=== PATIENT | female | born 1985 | race Caucasian/White ===

== ENCOUNTER 2022-02-24 15:59 | Outpatient (CLI) | payer OTHER, SELFPAY ==
[2022-02-25 17:57] LABS: Strep B DNA Probe POSITIVE (Negative)
== END 2022-02-24 16:00 | disposition home or self-care (01) ==
LOC: NFLDREF 15:59
PROVIDERS: Visit Provider Obstetrics & Gynecology
DX: Z34.93 Encounter for supervision of normal pregnancy, unspecified, third trimester (principal); Z3A.35 35 weeks gestation of pregnancy
CPT/HCPCS: 87081; 87653

== ENCOUNTER 2022-02-26 10:34 | Outpatient (CLI) | payer OTHER, SELFPAY ==
[2022-02-26 10:48] VITALS: BP 123/78; PULSE 101; RESP 18; TEMP 36.6; O2SAT 97
--- NOTE | 2022-02-26 13:00 | PC.OBNST ---
NST Note NST Note Start: 02/26/22 10:45 Freq: ONCE Status: Active Protocol: Document 02/26/22 12:10 BAM (Rec: 02/26/22 13:00 BAM [id number]) NST Note 2 Para (# of births) 0 EDC 03/30/22 Patient Presented with Complaint(s) of Other If Observation after an injury, describe Patient slipped on wet grass last night at 10:00pm. She landed on her knees Other Complaints Denies hitting stomach on ground or having pain Reactive Yes Appropriate for Gestational Age Yes WAYNE Kapoor RN Date 02/26/22 Reactive Yes Appropriate for Gestational Age Yes WAYNE Ferrer RN Date 02/26/22 OB NST charge Yes Provider Evaluation of EFM Strip: Reactive: [] Appropriate for Gestational Age: [] Comments:
== END 2022-02-26 12:20 | disposition home or self-care (01) ==
LOC: OB OUT 10:35 → OB 11:16
PROVIDERS: Absent Provider Obstetrics & Gynecology; Visit Provider Obstetrics & Gynecology
DX: O09.293 Supervision of pregnancy with other poor reproductive or obstetric history, third trimester (principal); O09.523 Supervision of elderly multigravida, third trimester
CPT/HCPCS: 59025

== ENCOUNTER 2022-03-07 10:58 | Outpatient (CLI) | payer OTHER, SELFPAY ==
[2022-03-07 11:06] VITALS: PULSE 90; O2SAT 97
[2022-03-07 11:08] VITALS: BP 133/88; PULSE 77; RESP 16; TEMP 36.8
== END 2022-03-07 14:32 | disposition home or self-care (01) ==
LOC: OB OUT 10:59 → OB 03-08 10:05
PROVIDERS: Visit Provider Obstetrics & Gynecology
DX: Z34.93 Encounter for supervision of normal pregnancy, unspecified, third trimester (principal); Z3A.36 36 weeks gestation of pregnancy
CPT/HCPCS: 59025; 99211; 99213

== ENCOUNTER 2022-03-08 16:30 | Inpatient (IN) | payer OTHER, SELFPAY ==
[2022-03-08 16:45] VITALS: BP 138/85
[2022-03-08 16:53] VITALS: BP 138/83; PULSE 75
[2022-03-08 16:54] VITALS: BP 138/85; PULSE 85; TEMP 36.4
[2022-03-08 17:22] VITALS: BMI 30.3
[2022-03-08 18:33] LABS: SARS PCR* Negative SARS-CoV-2 (Negative)
--- NOTE | 2022-03-08 18:35 | W.PM.LDBA ---
Subjective History of Present Illness Narrative: Patient is being admitted to Labor and Delivery for induction of labor. She is a 36 year old woman at 36 6/7 weeks gestation. She has hx of IUFD, and was having BPPs with MPP during the 3rd trimester. On a BPP from last week, intermittent variable decelerations were noted and nuchal cord X 5 was suspected. The perinatologist recommended she have IOL at 37 weeks. In addition, she has had one BP with systolic in the 140s in clinic. Her systolic BP at this time is 138, and she is currently in bed. blood type: A positive 2, P0010 : Sy Ultrasounds at [facility] are not covered by her insurance. EDC based on early US 1. H/o IUFD at 18 weeks 2. AMA: MaterniT 21: Negative; recommended level 2 u/s AFP at 15-16 weeks: Not done --Level 2 US: 11/03/2021, normal. Low lying placenta resolved. No evidence of anomalies, though heart and thorax not well seen. Follow-up ultrasound scheduled in 3 weeks. --U/S on 12/04/21:appropriate interval growth, estimated weight appropriate for gestational age, no anomalies noted. Recommendation is monthly growth and weekly BPPs beginning at 32 weeks until delivery by 39 weeks. --U/S on 01/01: No anomalies detected; growth and EFW consistent with dates; Nl CHRIS; Nl activity. F/u US scheduled at 32 weeks to reassess growth and to start weekly testing --US 01/29/22: EFW 1912 b or 4# 3oz (62%). Recommend weekly BPP, scheduled. Cont growth q4wks --US 02/23/22: BPP 8/8, MVP 7.2 cm --US 03/02/22 EFW 2597 g (28%), multiple nuchal cords (5) noted. BPP 10/, NST reactive but variable deceleration noted. Patient sent to [facility] for prolonged monitoring, then discharged. Recommended NST on 03/04 or 03/05, and induction of labor at 37 weeks. 3. Probable AURY measuring 3.2 x 2.2 x 1.8 cm 4. Migraine headaches. Fioricet or codeine sparingly as needed for severe migraine. Has previously used Imitrex. New prescription for Imitrex 50 mg sent in on 02/10/2022. Discussed prophylaxis with propranolol. Prescription sent in for 40 mg QD-->BID on 02/10/22. Patient did not start. 5. Elevated 1-h GTT (162) 3h GTT: normal (92, 135, 181, 91) 6. GBS positive, no known drug allergies. Needs IV penicillin in labor. Flu: can obtain through work Covid: vaccinated, not boosted; reluctant to do so, as she had an IUFD sometime after vaccine Her full history and physical was dictated by [] on []. Please see this for details. [] OB - H&P: Exam Physical Exam: Vital signs: Temp Pulse BP 97.5 F L 85 138/85 03/08/22 16:54 03/08/22 16:54 03/08/22 16:54
--- NOTE | 2022-03-08 18:42 | P.OBHP_ITS ---
OB - H&P: HPI Labor/Induction History of Present Illness Chief Complaint: Patient is being admitted to Labor and Delivery for induction of labor. She is a 36 year old woman at 36 6/7 weeks gestation. She has hx of IUFD, and was having BPPs with MPP during the 3rd trimester. On a BPP from last week, int ermittent variable decelerations were noted and nuchal cord X 5 was suspected. The perinatologist recommended she have IOL at 37 weeks. In addition, she has had one BP with systolic in the 140s in clinic. Her systolic BP at this time is 138, and she is currently in bed. blood type: A positive 2, P0010 : Sy Ultrasounds at [facility] are not covered by her insurance. EDC based on early US 1. H/o IUFD at 18 weeks 2. AMA: MaterniT 21: Negative; recommended level 2 u/s AFP at 15-16 weeks: Not done --Level 2 US: 11/03/2021, normal. Low lying placenta resolved. No evidence of anomalies, though heart and thorax not well seen. Follow-up ultrasound scheduled in 3 weeks. --U/S on 12/04/21:appropriate interval growth, estimated weight appropriate for gestational age, no anomalies noted. Recommendation is monthly growth and weekly BPPs beginning at 32 weeks until delivery by 39 weeks. --U/S on 01/01: No anomalies detected; growth and EFW consistent with dates; Nl CHRIS; Nl activity. F/u US scheduled at 32 weeks to reassess growth and to start weekly testing --US 01/29/22: EFW 1912 b or 4# 3oz (62%). Recommend weekly BPP, scheduled. Cont growth q4wks --US 02/23/22: BPP 8/8, MVP 7.2 cm --US 03/02/22 EFW 2597 g (28%), multiple nuchal cords (5) noted. BPP 10/10, NST reactive but variable deceleration noted. Patient sent to [facility] for prolonged monitoring, then discharged. Recommended NST on 03/04 or 03/05, and induction of labor at 37 weeks. 3. Probable AURY measuring 3.2 x 2.2 x 1.8 cm 4. Migraine headaches. Fioricet or codeine sparingly as needed for severe migraine. Has previously used Imitrex. New prescription for Imitrex 50 mg sent in on 02/10/2022. Discussed prophylaxis with propranolol. Prescription sent in for 40 mg QD-->BID on 02/10/22. Patient did not start. 5. Elevated 1-h GTT (162) 3h GTT: normal (92, 135, 181, 91) 6. GBS positive, no known drug allergies. Needs IV penicillin in labor. Flu: can obtain through work Covid: vaccinated, not boosted; reluctant to do so, as she had an IUFD sometime after vaccine Chief complaint: IOL for HTN, Nuchal Cord x5 : 2 Para: 0 Review of Systems Narrative: Good movement No contractions Positive for leg swelling Meds Home Medications and Allergies Home Medications Medication Instructions Recorded Confirmed Type aspirin 81 mg chewable tablet 1 tab PO DAILY tab 02/24/22 03/08/22 History butalbital 50 mg-acetaminophen 325 1 cap PO Q4H PRN cap 02/24/22 03/08/22 History mg-caffeine 40 mg-codeine 30 mg cap docosahexaenoic acid 200 mg 200 mg PO QDAY cap 02/24/22 03/08/22 History capsule ( DHA) sumatriptan succinate 25 mg tablet 25 mg PO .As Needed PRN 02/24/22 03/08/22 History Allergies Allergy/AdvReac Type Severity Reaction Status Date / Time No Known Allergies Allergy Unverified 03/05/22 10:34 OB - H&P: Exam Physical Exam: Vital signs: Temp Pulse BP 97.5 F L 85 138/85 03/08/22 16:54 03/08/22 16:54 03/08/22 16:54 Narrative: Physical exam: General: No acute distress Psych: Alert and oriented x3, full affect HEENT: Normocephalic, atraumatic Heart: Regular rate and rhythm, no murmur rub or gallop Lungs: Clear to auscultation bilaterally Abdomen: Soft, nontender, gravid Skin: No lesions or rashes Lower extremities: 2+ bilateral pitting edema Pelvic exam: Cervix 3.5 cm, 90%,-1 station, anterior, and soft. tracing: Baseline 130 / accels present / no decels / moderate variability. Reactive, reassuring NST OB - Problem Based A/P Additional Plan (1) Nuchal cord: Status: Acute Plan: [id number] woman at 36 weeks, 6 days gestation with nuchal cord X 5 on recent US and history of IUFD at 18 weeks. These are indications for IOL. Also with one elevated BP last week, high normal BP currently Favorable cervix. Category I tracing at this time GBS positive (2) Positive GBS test: Status: Acute Plan Begin ampicillin for GBS prophylaxis and pitocin overnight. Anticipate AROM in AM.
[2022-03-08 22:19] VITALS: BP 134/76; PULSE 73; RESP 16; TEMP 36.6
[2022-03-09] VITALS (42 sets, daily range): BP systolic 122–174; BP diastolic 63–87; PULSE 63–105; RESP 16–18; TEMP 36.4–36.8; O2SAT 98–100
[2022-03-09 02:58] LABS: Hemoglobin* 10.6 gm/dL (12.0-16.0)
[2022-03-09] MEDS: LACTATED RINGERS 1000 ML 1,000 ML 125 ML IV ×2 (02:58→09:28)
[2022-03-09] MEDS: OXYTOCIN 30 unit/500 ML in NS 30 UNIT/500 ML BAG IVPB (03:03)
[2022-03-09] MEDS: AMPICILLIN 2 GM in 0.9 % SODIUM CHLORIDE Mini-bag 100 ML IVPB (03:07)
[2022-03-09] MEDS: AMPICILLIN 1 GM in 0.9 % SODIUM CHLORIDE Mini-bag 100 ML IVPB (07:00)
[2022-03-09] MEDS: LIDOCAINE 2% (PF) 5 ML VIAL EPIDURAL (07:21)
[2022-03-09] MEDS: ROPIVACAINE 0.2% 100 ml 100 ML 12 MG EPIDURAL (07:22)
--- NOTE | 2022-03-09 07:24 | PM.ANBPRC ---
PFSH PFSH Family History (Updated 02/12/22 @ 09:35 by Chata Meade) Paternal Grandfather Stroke Maternal Grandmother Diabetes Father Migraine headache Social History (Updated 03/08/22 @ 21:49 by Maryanne Domingo MD) Narrative: Does not drink alcohol Does not use illicit drugs Non-smoker Lives in [place] with . Works at [employer]. Smoking Status: Never smoker Meds Home Medications and Allergies Home Medications Medication Instructions Recorded Confirmed Type aspirin 81 mg chewable tablet 1 tab PO DAILY tab 02/24/22 03/08/22 History butalbital 50 mg-acetaminophen 325 1 cap PO Q4H PRN cap 02/24/22 03/08/22 History mg-caffeine 40 mg-codeine 30 mg cap docosahexaenoic acid 200 mg 200 mg PO QDAY cap 02/24/22 03/08/22 History capsule ( DHA) sumatriptan succinate 25 mg tablet 25 mg PO .As Needed PRN 02/24/22 03/08/22 History Allergies Allergy/AdvReac Type Severity Reaction Status Date / Time No Known Allergies Allergy Unverified 03/05/22 10:34 Results Labs Labs: Laboratory Results - last 24 hr 03/08/22 03/09/22 03/09/22 16:53 02:50 02:50 Hgb 10.6 L SARS-CoV-2 (PCR) Negative SARS-CoV-2 Blood Type A Positive Antibody Screen NEGATIVE Vital Signs Vital Signs: Last Vital Signs Temp 97.6 F 03/09/22 05:02 Pulse 76 03/09/22 07:22 Resp 18 03/09/22 05:02 BP 146/70 H 03/09/22 07:22 Pulse Ox 98 03/09/22 07:15 Weight: 87.77 kg Height: 170.18 cm Anesthesia Procedures Epidural Insertion Patient Location: OB Start Time: 07:00 Stop Time: 07:45 Start Date: 03/09/22 Stop Date: 03/09/22 Reason for Block: procedure for pain Patient Position: sitting Performed By: Eliud Merino Preanesthetic Checklist: IV checked, risks and benefits discussed, surgical consent, monitors and equipment checked, pre-op evaluation and timeout performed Prep: chlorhexidine gluconate Monitoring: blood pressure monitoring, continuous pulse oximetry and heart rate Approach: midline Vertebral Space: lumbar (1-5) Epidural Technique: LOPEZ saline Needle Type: Tuohy needle Injection Technique: continuous shot Needle gauge: 17 Needle Length (cm): 10 cm Needle Insertion Depth (cm): 5 Catheter Gauge: 17 Catheter Type: multi-orifice Catheter at skin depth (cm): 11 Test Dose Result: negative and lidocaine 1.5% with epinephrine 1 to 200,000
--- NOTE | 2022-03-09 07:51 | PM.OBPNL ---
Pain Control Time Seen by Provider: 07:51 Date Seen: 03/09/22 Pain control: tolerating well and epidural Comments: Still feeling some low abdominal and pelvic pressure with contractions, right greater than left. Contractions Monitor mode: External Contraction frequency: 3 Contraction pattern: Regular Contraction intensity: Strong/Firm Pelvic Exam Dilation (cm): 6 Effacement (%): 90 Station: 0 Comments: BBOW Fetus (Single) status: Category ll Comments: Some scattered V-shaped variable decelerations since sitting up for epidural. Good variability. Baseline 145 bpm. Assessment and Plan Pitocin rate (mU/min): 4 Assessment: active labor Plan: continue present management
--- NOTE | 2022-03-09 11:47 | P.OBPRC_ITS ---
Procedure Delivery date: 03/09/22 Procedure Done: Global Events: Other (Multiple loops of nuchal cord seen on ultrasound. [facility] recommended induction 37 weeks gestation.) Intrapartal Events: Labor Induction Induction method: per pitocin protocol Delivery monitor: external FHT Route of delivery: Episiotomy description: None Laceration description: Labial (Bilateral) Delivery repair: Vicryl (3-0, right vaginal sulcus second-degree laceration repair) and Chromic (3-0, subcuticular repair labial lacerations and right labial avulsion) Estimated blood loss (mL): 200 Anesthesia type: Epidural Disposition: floor Complications: None. Narrative: OB Problem List: 1. H/o IUFD at 18 weeks 2. AMA: MaterniT 21: Negative; recommended level 2 u/s AFP at 15-16 weeks: Not done --Level 2 US: 11/03/2021, normal. Low lying placenta resolved. No evidence of anomalies, though heart and thorax not well seen. Follow-up ultrasound scheduled in 3 weeks. --U/S on 12/04/21:appropriate interval growth, estimated weight appropriate for gestational age, no anomalies noted. Recommendation is monthly growth and weekly BPPs beginning at 32 weeks until delivery by 39 weeks. --U/S on 01/01: No anomalies detected; growth and EFW consistent with dates; Nl CHRIS; Nl activity. F/u US scheduled at 32 weeks to reassess growth and to start weekly testing --US 01/29/22: EFW 1912 b or 4# 3oz (62%). Recommend weekly BPP, scheduled. Cont growth q4wks --US 02/23/22: BPP 8/8, MVP 7.2 cm --US 03/02/22 EFW 2597 g (28%), multiple nuchal cords (5) noted. BPP 10/10, NST reactive but variable deceleration noted. Patient sent to [facility] for prolonged monitoring, then discharged. Recommended NST on 03/04 or 03/05, and induction of labor at 37 weeks. 3. Probable AURY measuring 3.2 x 2.2 x 1.8 cm 4. Migraine headaches. Fioricet or codeine sparingly as needed for severe migraine. Has previously used Imitrex. New prescription for Imitrex 50 mg sent in on 02/10/2022. Discussed prophylaxis with propranolol. Prescription sent in for 40 mg QD-->BID on 02/10/22. Patient did not start. 5. Elevated 1-h GTT (162) 3h GTT: normal (92, 135, 181, 91) 6. GBS positive, no known drug allergies. Needs IV penicillin in labor. The patient is a 36 year-old G 2 P 0010 admitted on 03/08/2022 at 36 Weeks, 6 Days gestation for induction of labor.? Cervical ripening was initially planned, but was unnecessary. Cervical exam on admission was 3.5 cm/90 % effaced/-1 station with membranes intact in vertex presentation.? Contractions were every occasional.? heart rate demonstrated baseline 135 bpm with moderate variability, + accelerations, - decelerations; a category 1 tracing.? Pitocin administration was initiated per induction protocol beginning at 3:00 a.m. on 03/08/2022. GBS prophylaxis in the form of IV penicillin was also initiated at that time. Labor onset: 0600 ? Labor Analgesia:? Nitrous at 0635 and then epidural at 0700. ? SROM occurred at 0819, clear fluid noted. Complete:? 0820 ? Pushing:? 0823 ? heart tones during second stage were 140s baseline with variable d ecelerations to 70s to 90s, good variability. ? At 0950 a viable female infant delivered in vertex OA presentation over intact perineum via spontaneous vaginal delivery.? Infant was placed on maternal abdomen.? Cord was clamped and cut after a 30-60 second delay.? Nose and mouth were bulb suctioned.? Infant weight pending.? 9 at 1 minute and 9 at 5 minutes.? Shoulder dystocia: No.? Nuchal cord: Yes, x6, reduced over the head at the time of delivery. ? Placenta delivered spontaneously and complete at 0954 with a 3 vessel cord. ? Mother and infant were stable after delivery. ? Lacerations:? 1st degree bilateral labial, right side also with partial avulsion, repaired with 3-0 chromic. Second-degree right vaginal sulcus tear repaired with 3-0 Vicryl. ? Blood loss: 200 mL. Blood loss measurement type: QBL ? Sponge and needles counts are correct. Infant Infant Gender: Female presentation: vertex Placental Delivery Description: Spontaneous (Torrez presentation) Cord Description: 3 Vessels and Nuchal Cord (x6) cord description comment: long cord OB Vag Delivery Procedures Additional Procedures Laceration Repair: Yes
[2022-03-09] MEDS: IBUPROFEN 600 MG TABLET PO ×2 (13:31→21:44)
[2022-03-09] MEDS: LIDOCAINE 1 % PF 30 ML INJECTION (14:05)
[2022-03-09] MEDS: ACETAMINOPHEN 500 MG TABLET 1000 MG PO (15:17)
[2022-03-10] MEDS: ACETAMINOPHEN 500 MG TABLET 1000 MG PO ×4 (00:13→19:40)
[2022-03-10 01:18] VITALS: BP 119/76; PULSE 69; RESP 16; TEMP 36.6; O2SAT 98
[2022-03-10] MEDS: IBUPROFEN 600 MG TABLET PO ×4 (04:04→22:58)
[2022-03-10 04:27] VITALS: BP 128/74; PULSE 71; RESP 16; TEMP 36.4; O2SAT 94
[2022-03-10 07:23] LABS: Hemoglobin* 10.1 gm/dL (12.0-16.0)
[2022-03-10 07:47] VITALS: BP 134/86; PULSE 67; RESP 16; TEMP 36.5; O2SAT 98
--- NOTE | 2022-03-10 08:15 | PM.OBPNVD1 ---
OB - PN:Subj Subjective Patient comments OB post-: no complaints and pain well controlled [place] status: (and pumping and hand expressing) [place] feeding status: exclusively (and syringe feeding expressed milk) OB - PN: Obj Exam Physical Exam: Vital signs: Temp Pulse Resp BP Pulse Ox 97.7 F 67 16 134/86 98 03/10/22 07:47 03/10/22 07:47 03/10/22 07:47 03/10/22 07:47 03/10/22 07:47 Constitutional: Constitutional: no acute distress Routine HEENT Exam: Head: Present normal inspection Routine Neck Exam: Neck: Present full ROM Routine Abdominal Exam: Abdominal: Present normal bowel sounds Routine Exam: Comments: fundus firm, 2 below umbilicus Routine Neurological Exam: Neurological: Present alert and oriented X3 Routine Psychiatric Exam: Psychiatric: Present normal affect and normal thought process OB - PN: Obj Data Labs Labs: Laboratory Results - last 24 hr 03/10/22 06:56 Hgb 10.1 L OB - PN: A/P Vaginal Delivery Assessment and Plan (1) Nuchal cord: Status: Acute (2) Positive GBS test: Status: Acute Plan Plan: routine care
[2022-03-10] MEDS: DOCUSATE SODIUM 100 MG CAPSULE PO (08:52)
[2022-03-10] MEDS: OXYCODONE 5 MG TABLET PO ×4 (08:53→23:02)
[2022-03-10] MEDS: LANOLIN CREAM 1 APPLIC TOPICAL (08:53)
[2022-03-10 17:59] VITALS: BP 131/82; PULSE 78; RESP 16; TEMP 36.5; O2SAT 97
[2022-03-10 19:40] VITALS: TEMP 36.3
[2022-03-10 22:58] VITALS: TEMP 36.4
[2022-03-11] MEDS: ACETAMINOPHEN 500 MG TABLET 1000 MG PO ×4 (02:25→22:45)
[2022-03-11 03:04] VITALS: BP 122/73
[2022-03-11] MEDS: OXYCODONE 5 MG TABLET PO ×2 (05:38→10:17)
[2022-03-11] MEDS: IBUPROFEN 600 MG TABLET PO ×3 (05:38→19:58)
[2022-03-11 05:55] VITALS: BP 138/85
[2022-03-11 08:05] VITALS: BP 128/81; PULSE 76; RESP 16; TEMP 36.4; O2SAT 97
--- NOTE | 2022-03-11 08:59 | PM.OBDSVD1 ---
DS: Providers Provider Date Seen: 03/11/22 Date of admission: 03/08/22 16:30 Primary care physician: Not a Local Provider Admitting Clinician: Maryanne Domingo MD Attending Physician on discharge: Nikole Matthews CNM Date of Discharge: 03/11/22 DS: Diagnosis Discharge Diagnosis (1) care following vaginal delivery: Status: Acute (2) Lactating mother: Status: Acute Exam Const: Vital Signs, click to edit/add: Vital Signs - 24 hr 03/10/22 17:59 03/10/22 19:40 03/10/22 22:58 Temperature 97.7 F 97.4 F L 97.6 F Pulse Rate [Pulse Oximeter] 78 Respiratory Rate 16 Blood Pressure [Ri ght Arm] 131/82 Pulse Oximetry 97 03/11/22 03:04 03/11/22 05:55 03/11/22 08:05 Temperature 97.6 F Pulse Rate [Pulse Oximeter] 76 Respiratory Rate 16 Blood Pressure [Ri ght Arm] 122/73 138/85 128/81 Pulse Oximetry 97 Documenting provider has reviewed patient's vital signs: yes Common normals: no apparent distress, average body habitus, oriented x3, no limitations, healthy appearing, alert and well nourished HENMT: Common normals: normocephalic Head and scalp: normocephalic Eye: Common normals: PERRL Pupil: PERRL Neck & C-Spine: Common normals: full ROM Chest: Common normals: inspection of chest normal and inspection of breasts normal Nipple/areola: nipples/areola normal Resp: Common normals: normal respiratory effort Cardio: Common normals: regular rate and regular rhythm Rate: regular rate Rhythm: regular rhythm GI: Common normals: Normal to inspection, nondistended, normoactive bowel sounds present and soft to palpation Palpation: soft : OB/external & speculum: Yes perineal/vaginal laceration Laceration: 2nd (Sulcus) and labial Uterus: U/U Lochia: small Back & Pelvis: Common normals: thoracic and lumbar spine normal to inspection Extremity: Common normals: normal to inspection General: edema (bilateral lower extremities) Neuro: Common normals: oriented x3 Sensorium/orientation: alert Psych: Common normals: mental status grossly normal, thought process normal and speech normal Speech: normal speech Thought process: normal thought process Skin: Common normals: no rashes or lesions noted General skin exam: no rashes or lesions noted OB - DS: Summary Hospital Course Hospital Course: The patient is a 36 year old G 2 P 1011 at 37 0/7 weeks gestation that was admitted to the Center on 03/08/22 for IOL for nuchal cord x 6. She had an uncomplicated vaginal delivery. She delivered a viable female . She is breast feeding and hand expressing. Baby is currently needing IV sugar support. the patient has done well. Peripartum Data Infant delivery method: Vaginal Laceration description: Perineal - 2nd Degree (Sulcus) complications: none Gender: Female Infant Discharge Plan: Home (Possible discharge tomorrow) Status at Discharge Functional status at discharge: independent ambulation Overall status at discharge: patient is progressing back to baseline Time Spent with Patient Time attestation: Total time spent providing and/or coordinating discharge services: Time spent: Less than 30 minutes Discharge Plan Discharge Disposition: Home, Self-Care Date of Admission: 03/08/22 16:30 Attending Provider on Discharge: Nikole Matthews Primary Care Provider: Provider,Not a Local Condition: Stable Anticipated Discharge Date/Time: 03/11/22 00:07 Discharge Medications: New acetaminophen 500 mg Tablet 1,000 mg PO Q6H PRN (Reason: pain/fever) Qty: 0 0RF docusate sodium 100 mg Capsule 100 mg PO DAILY Qty: 90 0RF ibuprofen 600 mg Tablet 600 mg PO Q6H PRNQty: 60 0RF Continued DHA 200 mg capsule 200 mg PO QDAY 0RF sumatriptan succinate 25 mg tablet 25 mg PO .As Needed PRN0RF Rx Instructions: ONE TAB AT ONSET OF HEADACHE, MAY REPEAT Q2H PRN, MAX 200 MG/24 HRS [id number] mg capsule 1 cap PO Q4H PRN0RF folic acid 1 mg tablet 1 mg PO QDAY Qty: 90 0RF Discontinued aspirin 81 mg tablet,chewable 1 tab PO DAILY 0RF Discharge Orders: Discharge Order (Routine); Ordered 03/11/22 Ordered By: Nikole Matthews Patient Education: OB Vaginal/Breast Feeding Activity Restrictions/Additional Instructions: Discharge instructions were reviewed with the patient including signs and symptoms of infection and home going medications. Lifting Restrictions: n/a Do not drive while taking pain meds. Off Work or School for 6 weeks. Symptoms to report to doctor: -Bleeding that saturates more than one pad per hour ?-Passing clots larger than the size of a golf ball ?-Pain not relieved by prescribed medication ?-Fever above 100.4 degrees Fahrenheit ?-A foul vaginal odor ?-Difficulty in emotions, mood and functions ?-Thoughts of hurting yourself and/or ?-Painful, reddened area in your breast ?-Any drainage, redness or tenderness in your IV/epidural site ?-Severe headache that doesn't improve after taking medications ?-Changes in vision, including temporary loss of vision, blurred vision, and/or light sensitivity ?-Upper abdominal pain (usually under ribs on the right side) ?-Decrease in urination or painful, frequent urinating ?-Chest pain ?-Shortness of breath ?-Tenderness or pain with redness and/swelling in the calf(s) of your leg Follow Up with [facility] at 2 weeks and 6 weeks. consultation services are available to all mothers and babies for the first year after delivery.? To make an appointment, please call [phone]. Activity Level: No Restrictions and Activity as Tolerated Discharge Diet: Regular Follow Up Appointments: [facility] [Provider Group] (at 2 weeks and 6 weeks) Forms: new test company Info Instructions
[2022-03-11 16:20] VITALS: BP 137/76; PULSE 77; RESP 16; TEMP 36.7; O2SAT 98
[2022-03-11 16:55] VITALS: BP 145/90
[2022-03-11 22:01] VITALS: BP 146/86; PULSE 63; RESP 16; TEMP 36.7; O2SAT 98
[2022-03-11 23:14] LABS: Alanine Aminotransferase* 26 U/L (4-35); Aspartate Amino Transferase* 35 U/L (12-35); Blood Urea Nitrogen* 17 mg/dL (5-24); Creatinine* 0.7 mg/dL (0.5-1.5); Est. Creatinine Clearance* 109.08; Estimated Glomerular Filt Rate 116 ml/min
--- NOTE | 2022-03-11 23:30 | PM.OBPNVD1 ---
OB - PN:Subj Subjective Date Seen: 03/11/22 Interval history: Bren is a at 37 0/7 weeks gestation. She was planning to discharge home today but had multiple elevated blood pressures. Baby was not planning to discharge due to need for IV glucose support. Patient comments OB post-: no complaints and pain well controlled status: OB - PN: Obj Exam Physical Exam: Vital signs: Temp Pulse Resp BP Pulse Ox 98.0 F 63 16 146/86 H 98 03/11/22 22:01 03/11/22 22:01 03/11/22 22:01 03/11/22 22:01 03/11/22 22:01 Narrative: See this mornings discharge note for a full physical exam. Constitutional: Constitutional: no acute distress and cooperative OB - PN: Obj Data Labs Labs: Laboratory Results - last 24 hr 03/09/22 03/11/22 11:00 22:54 BUN 17 Creatinine 0.7 Estimated Creat Clear 109.08 Estimated GFR 116 AST 35 ALT 26 Surg PTH (Off-Site) See Scanned Report OB - PN: A/P Vaginal Delivery Assessment and Plan (1) care following vaginal delivery: Status: Acute (2) Lactating mother: Status: Acute (3) Gestational hypertension: Status: Acute Assessment and Plan: 1. Labs obtained for pre-e rule out. Blood pressures have been 140/90's x 2.Planned to keep patient another night to observe blood pressures since she is staying in the hospital with baby who is not discharging home. 2. Labs reviewed are WNL, however AST is on the high end of normal. Criteria met for gestational hypertension. 3. Continue to observe blood pressure. Anticipate discharge tomorrow. Plan day: 2 Plan: routine care
[2022-03-11 23:56] LABS: Basophils Absolute Auto 0.04 K/uL (0.00-0.30); Basophils Percent Auto 0.5 % (0.0-3.0); Eosinophils Absolute Auto 0.22 K/uL (0.00-0.50); Eosinophils Percent Auto 2.5 % (0.0-7.0); Hematocrit 32.2 % (33.0-51.0); Hemoglobin* 10.5 gm/dL (12.0-16.0); Immature Granulocytes Abs Auto 0.01 K/uL (0.00-0.30); Lymphocytes Percent Auto 21.6 % (20-44); Mean Corpuscular HGB Conc 33 gm/dL (32-36); Mean Corpuscular Hemoglobin 32 pg (26-34); Mean Corpuscular Volume 98 fL (80-100); Monocytes Percent Auto 6.5 % (0.0-11.0); Neutrophils Absolute Auto 6.05 K/uL (1.7-7.0); Neutrophils Percent Auto 68.8 % (42.0-72.0); Platelet Count* 245 K/uL (140-440); RDW Coefficient of Variation % 11.9 % (11.5-15.5); Red Blood Count 3.29 m/uL (4.00-5.20); White Blood Count* 8.79 K/uL (4.50-11.00)
[2022-03-11 23:58] LABS: Slide Review Reflex No
[2022-03-12] VITALS (9 sets, daily range): BP systolic 117–164; BP diastolic 72–105; PULSE 67–97; RESP 16; TEMP 36.5–36.7; O2SAT 95–99
[2022-03-12] MEDS: IBUPROFEN 600 MG TABLET PO ×3 (05:50→20:35)
[2022-03-12] MEDS: ACETAMINOPHEN 500 MG TABLET 1000 MG PO ×2 (08:22→15:14)
[2022-03-12 09:34] LABS: Hematocrit 33.4 % (33.0-51.0); Hemoglobin* 11.1 gm/dL (12.0-16.0); Mean Corpuscular HGB Conc 33 gm/dL (32-36); Mean Corpuscular Hemoglobin 32 pg (26-34); Mean Corpuscular Volume 97 fL (80-100); Platelet Count* 242 K/uL (140-440); Red Blood Count 3.44 m/uL (4.00-5.20); White Blood Count* 8.46 K/uL (4.50-11.00)
[2022-03-12 09:50] LABS: Alanine Aminotransferase* 29 U/L (4-35); Aspartate Amino Transferase* 42 U/L (12-35); Blood Urea Nitrogen* 18 mg/dL (5-24); Creatinine* 0.7 mg/dL (0.5-1.5); Est. Creatinine Clearance* 109.08; Estimated Glomerular Filt Rate 116 ml/min; Slide Review Reflex No
--- NOTE | 2022-03-12 11:38 | PM.OBPNVD1 ---
OB - PN:Subj Subjective Time Seen by Provider: 08:30 Date Seen: 03/12/22 Interval history: Bren is a at 37 0/7 weeks gestation. Decision made to keep overnight yesterday r/t elevated BPs. Baby remains on blood sugars with IV. BPs again noted elevated this am. Repeat labs done, AST slightly elevated. Having some increased cramping, but tylenol and ibuprofen are helping. Is pumping and supplementing. Patient comments OB post-: pain well controlled feeding status: expressed and bottle feeding OB - PN: Obj Exam Physical Exam: Vital signs: Temp Pulse Resp BP Pulse Ox 98.1 F 67 16 149/89 H 99 03/12/22 08:20 03/12/22 08:20 03/12/22 08:20 03/12/22 09:50 03/12/22 08:20 Constitutional: Constitutional: no acute distress Routine HEENT Exam: Head: Present normocephalic Routine Neck Exam: Neck: Present full ROM Routine Respiratory Exam: Respiratory: Present CTA bilaterally Routine Cardiovascular Exam: Cardiovascular: Present RRR Routine Abdominal Exam: Abdominal: Present normal bowel sounds Fundus: Present firm (-2 below U) Routine Exam: Perineum Description: Normal Routine Extremities Exam: Extremities: Present full ROM and pedal edema (+1) Routine Back/Spine/Pelvis Exam: Back/Spine: Present full ROM Routine Neurological Exam: Neurological: Present alert and oriented X3 Routine Psychiatric Exam: Psychiatric: Present normal affect OB - PN: Obj Data Labs Labs: Laboratory Results - last 24 hr 03/09/22 03/11/22 03/11/22 11:00 22:54 22:54 WBC 8.79 RBC 3.29 L Hgb 10.5 L Hct 32.2 L MCV 98 MCH 32 MCHC 33 RDW Coeff of Clari 11.9 Plt Count 245 Neut % (Auto) 68.8 Lymph % (Auto) 21.6 [place] % (Auto) 6.5 Eos % (Auto) 2.5 Baso % (Auto) 0.5 Neut # (Auto) 6.05 Lymph # (Auto) 1.90 [place] # (Auto) 0.60 Eos # (Auto) 0.22 Baso # (Auto) 0.04 Abs Immat Gran (auto) 0.01 BUN 17 Creatinine 0.7 Estimated Creat Clear 109.08 Estimated GFR 116 AST 35 ALT 26 Surg PTH (Off-Site) See Scanned Report 03/12/22 03/12/22 09:26 09:26 WBC 8.46 RBC 3.44 L Hgb 11.1 L Hct 33.4 MCV 97 MCH 32 MCHC 33 RDW Coeff of Clari Plt Count 242 Neut % (Auto) Lymph % (Auto) [place] % (Auto) Eos % (Auto) Baso % (Auto) Neut # (Auto) Lymph # (Auto) [place] # (Auto) Eos # (Auto) Baso # (Auto) Abs Immat Gran (auto) BUN 18 Creatinine 0.7 Estimated Creat Clear 109.08 Estimated GFR 116 AST 42 H ALT 29 Surg PTH (Off-Site) OB - PN: A/P Vaginal Delivery Assessment and Plan (1) care following vaginal delivery: Status: Acute (2) Lactating mother: Status: Acute (3) Gestational hypertension: Status: Acute Plan Plan: routine care Comments: Routine PP care Preeclampsia -continue to monitor BPs closely -Repeat labs ordered, AST slightly more elevated than last night -Consulted Dr. Rajiv Dorado, decision made to start on labetalol -Reassess for discharge home tomorrow Mild acute anemia -May see if desired
[2022-03-12] MEDS: LABETALOL HCL 100 MG TABLET 200 MG PO ×2 (11:42→20:34)
[2022-03-12] MEDS: LANOLIN CREAM 1 APPLIC TOPICAL (11:43)
[2022-03-13 02:22] VITALS: BP 130/74; BP 143/79; PULSE 81; RESP 16; TEMP 36.9; O2SAT 97
[2022-03-13] MEDS: IBUPROFEN 600 MG TABLET PO ×2 (03:48→14:16)
[2022-03-13 09:00] VITALS: BP 143/82; PULSE 79; RESP 16; TEMP 36.6; O2SAT 95
[2022-03-13] MEDS: LABETALOL HCL 100 MG TABLET 200 MG PO (09:01)
[2022-03-13] MEDS: ACETAMINOPHEN 500 MG TABLET 1000 MG PO (09:02)
--- NOTE | 2022-03-13 10:25 | PM.OBPNVD1 ---
OB - PN:Subj Subjective Time Seen by Provider: 10:15 Date Seen: 03/13/22 Interval history: Bren is a , s/p at 37 0/7 weeks gestation. BPs remain mildly elevated despite labetalol 200 mg BID. Baby came off D10/fluids this am, feeding going better. Is pumping and supplementing. Patient comments OB post-: pain well controlled status: doing well [place] feeding status: breast and bottle feeding OB - PN: Obj Exam Physical Exam: Vital signs: Temp Pulse Resp BP Pulse Ox 97.9 F 79 16 143/82 H 95 03/13/22 09:00 03/13/22 09:00 03/13/22 09:00 03/13/22 09:00 03/13/22 09:00 Constitutional: Constitutional: no acute distress Routine Abdominal Exam: Fundus: Present firm Routine Exam: External: Present normal external exam Routine Extremities Exam: Extremities: Present pedal edema (trace) Routine Psychiatric Exam: Psychiatric: Present normal affect OB - PN: A/P Vaginal Delivery Assessment and Plan (1) care following vaginal delivery: Status: Acute (2) Lactating mother: Status: Acute (3) Gestational hypertension: Status: Acute Plan Increase labetalol to 400 mg po BID. Patient will be provided with a BP cuff prescription at [facility]arge for a home BP cuff so that she can monitor BPs at home daily. Plan Plan: discharge home Comments: Infant will be ready for discharge later this afternoon. Patient to be discharged as well. Follow up for BP check in 1 week.
[2022-03-13] MEDS: LABETALOL HCL 100 MG TABLET 400 MG PO (10:41)
[2022-03-13 14:40] VITALS: BP 155/87; RESP 18
[2022-03-13 14:55] VITALS: BP 150/97
== END 2022-03-13 16:15 | disposition home or self-care (01) | DRG 807 ==
PROVIDERS: Advanced Practice Midwife; Obstetrics & Gynecology; Admitting Provider Obstetrics & Gynecology; Visit Provider Advanced Practice Midwife
DX: O99.824 Streptococcus B carrier state complicating childbirth (principal); O13.5 Gestational [pregnancy-induced] hypertension without significant proteinuria, complicating the puerperium; O70.1 Second degree perineal laceration during delivery; G43.909 Migraine, unspecified, not intractable, without status migrainosus; Z37.0 Single live birth; Z3A.37 37 weeks gestation of pregnancy
CPT/HCPCS: 01967; 36415; 82565; 84450; 84460; 84520; 85018; 85025; 85027; 86850; 86900; 86901; 87635; 88307; A9270; J0290; J2001; J2795; J7120

== ENCOUNTER 2023-02-11 16:24 | Outpatient (CLI) | payer OTHER, SELFPAY | END 2023-02-11 16:25 | disposition home or self-care (01) | LOC: NFLDREF 16:25 | PROVIDERS: PCP Family Medicine; Visit Provider Registered Nurse | DX: N93.9 Abnormal uterine and vaginal bleeding, unspecified (principal); N92.6 Irregular menstruation, unspecified; Z39.1 Encounter for care and examination of lactating mother | CPT/HCPCS: 84443; 87491; 87591 ==

== ENCOUNTER 2023-02-17 15:37 | Outpatient (CLI) | payer OTHER, SELFPAY ==
--- NOTE | 2023-02-17 16:00 | CRLHL7_ITS ---
For Patients: As a result of the Century Cures Act, medical imaging exams and procedure reports are released immediately into your electronic medical record. You may view this report before your referring provider. If you have questions, please contact your health care provider. INDICATION: ABNORMAL UTERINE BLEEDING COMPARISON: none TECHNIQUE: 2D blackwood scale and color Doppler images were acquired of the pelvis using a transabdominal and transvaginal approach. FINDINGS: Sonographic images demonstrate a normal size and smooth outer contour of the uterus. Uterus measures 8.2 cm in length by 4.4 cm in AP diameter by 5.5 cm in transverse dimension. The myometrium has a normal uniform echotexture. The endometrial lining appears normal and measures 5 mm in composite thickness. The right ovary measures 3.7 x 2.9 x 3.6 cm in size and the left ovary measures 3.5 x 1.7 x 1.9 cm. The ovaries demonstrate normal arterial and venous blood flow on color Doppler analysis. There are no suspicious fluid collections within the cul-de-sac. IMPRESSION: Normal pelvic ultrasound. Dictated by Willie Aparicio MD @ 02/17/2023 8:42:12 PM (Electronically Signed)
== END 2023-02-17 15:38 | disposition home or self-care (01) ==
LOC: US 15:38
PROVIDERS: PCP Family Medicine; Visit Provider Registered Nurse
DX: N93.9 Abnormal uterine and vaginal bleeding, unspecified (principal)
CPT/HCPCS: 76830; 76856

== ENCOUNTER 2023-04-13 13:49 | Outpatient (CLI) | payer OTHER, SELFPAY | END 2023-04-13 13:50 | disposition home or self-care (01) | PROVIDERS: PCP Family Medicine; Visit Provider Registered Nurse | DX: O09.521 Supervision of elderly multigravida, first trimester (principal); Z3A.08 8 weeks gestation of pregnancy | CPT/HCPCS: 82565; 82570; 84156; 84450; 84460; 84520; 86592; 86703; 86762; 86787; 86803; 86850; 86900; 86901; 87086; 87340 ==

== ENCOUNTER 2023-08-16 16:17 | Outpatient (CLI) | payer OTHER, SELFPAY ==
[2023-08-16 16:38] VITALS: BP 114/62; PULSE 83; RESP 16; TEMP 36.6
--- NOTE | 2023-08-16 19:23 | PC.OBNST ---
NST Note NST Note Start: 08/16/23 16:35 Freq: ONCE Status: Active Protocol: Document 08/16/23 17:55 WK (Rec: 08/16/23 19:23 WK [id number]) NST Note 3 Para (# of births) 1 EDC 11/25/23 Gestational Age In Weeks & Days 25 Weeks & 4 Days Patient Presented with Complaint(s) of Other If Observation after an injury, describe Pt tripped and fell landing on hands, but remained on her feet. Other Complaints Denied hitting stomach. Reactive Yes Appropriate for Gestational Age Yes RN Evens RNC Date 08/16/23 Reactive Yes Appropriate for Gestational Age Yes RN Geraldine RN Date 08/16/23 OB NST charge Yes Complete NST Note via Write Note Yes The provider's electronic signature indicates the NST is reactive/appropriate for gestational age. *Note to provider: If an addendum is required, open the patient's chart and click on the note under the Nurse/Allied Health tab.
== END 2023-08-16 17:55 | disposition home or self-care (01) ==
LOC: OB OUT 16:18 → OB 16:26
PROVIDERS: PCP Family Medicine; Visit Provider Obstetrics & Gynecology
DX: O26.892 Other specified pregnancy related conditions, second trimester (principal); W01.0XXA Fall on same level from slipping, tripping and stumbling without subsequent striking against object, initial encounter; Z3A.25 25 weeks gestation of pregnancy
CPT/HCPCS: 59025; 99213

== ENCOUNTER 2023-08-29 09:00 | Outpatient (CLI) | payer BC, SELFPAY | END 2023-08-29 09:01 | disposition home or self-care (01) | LOC: NFLDREF 09-02 02:19 | PROVIDERS: PCP Family Medicine; Referring Provider Family Medicine; Visit Provider Obstetrics & Gynecology | DX: Z34.92 Encounter for supervision of normal pregnancy, unspecified, second trimester (principal); Z3A.27 27 weeks gestation of pregnancy | CPT/HCPCS: 86592 ==

== ENCOUNTER 2023-10-26 15:04 | Outpatient (CLI) | payer BC, SELFPAY ==
[2023-10-27 13:18] LABS: Strep B DNA Probe Negative (Negative)
[2023-10-27 14:39] LABS: Strep B Susceptibility Needed? No
== END 2023-10-26 15:05 | disposition home or self-care (01) ==
LOC: NFLDREF 15:05
PROVIDERS: PCP Family Medicine; Visit Provider Obstetrics & Gynecology
DX: Z34.93 Encounter for supervision of normal pregnancy, unspecified, third trimester (principal)
CPT/HCPCS: 87081; 87653

== ENCOUNTER 2023-11-21 19:10 | Inpatient (IN) | payer BC, SELFPAY ==
[2023-11-21] VITALS (28 sets, daily range): BP systolic 110–153; BP diastolic 54–82; PULSE 63–87; RESP 16–18; TEMP 36.5–36.6; O2SAT 100; BMI 29.0
[2023-11-21] MEDS: LACTATED RINGERS 1000 ML 1,000 ML IV (19:30)
[2023-11-21] MEDS: ONDANSETRON 2 MG/ML inj 4 MG IV (19:38)
--- NOTE | 2023-11-21 19:44 | P.LDBA_ITS ---
Subjective History of Present Illness Time Seen by Provider: 19:30 Date Seen: 11/21/23 Narrative: Patient is being admitted to Labor and Delivery for labor. She is a 38 year old at 39 3/7 weeks gestation. Her full history and physical was dictated by Dr. Mccord on 11/04/23. Please see this for details. She had been evaluated in the Center earlier today for migraine, and was sent home. Original plan was for induction of labor today, but due to a full unit, her induction had to be delayed until tomorrow. During her observation in Triage, she was observed to have fairly frequent contractions, but she was largely unaware of them and declined cervical examination. She was able to sleep much of the day and her headache resolved. She believes that her water broke around 6:30 pm. Contractions subsequently became more intense and she complained of pelvic pressure when she arrived back at the Center. She is hoping for regional analgesia and the DATA PROCESSING SPECIALIST was notified. Specific Issues/Plans G 3 P 1011 H&P done by Dr. Mccord on 11/04/23. SEND PATIENT TO GET HER HGB DRAWN ON 11/17 Planning to get all of her ultrasounds through [facility] in [place] due to insurance coverage. Patient has an ultrasound scheduled with them at 12 weeks and 16 weeks. GC/chlamydia screen not done at 1st OB visit, but was negative in February 11 2023. 1. Advanced maternal age * Desires [id number]. Collected 04/22/2023. Negative. * Ultrasound at [place] 06/08/2023 at 16 5/7 weeks: Normal. Suboptimal views of 4 chamber heart and sacral spine. Repeat scan scheduled for 20 weeks gestation. * Recommend level 2 ultrasound: Scheduled at [place] for 20 weeks gestation: Normal on 07/06/2023. * Follow up US 08/31/23: EFW 76% * Follow-up US on 09/28/2023: EFW 64%, BPP 8/8 * 10/05/23: BPP 8/8, MVP 8.1 cm, CHRIS 22.5 cm, vertex * 10/12/2023: BPP 8/8, MVP 6.6 cm, vertex * Consider IOL at 39-40 weeks gestation: 11/21/23 2. History of gestational hypertension * Baseline preeclampsia labs: P/C ration: 0.2 * Remainder of preE labs normal. * Recommend daily baby aspirin starting at 12 weeks to reduce risk of preeclampsia. 3. IUFD at 18 weeks * MFM to do monthly growth ultrasound * Weekly BPP beginning at 32 weeks with MFM 4. History of migraines. Prescription refilled for sumatriptan. Also has Fioricet. COVID: Completed and boosted x1. OB - Problem Based A/P Additional Plan (1) Spontaneous onset of labor: Status: Acute (2) SROM (spontaneous rupture of membranes): Status: Acute Delivery/Labor/Induction Plan Plan: expectant management OB Exam Physical Exam Vital signs: Pulse BP 80 131/67 11/21/23 19:21 11/21/23 19:21 Detailed Labor and Delivery Exam Patient Gravid: Yes Dilation (cm): 7 Cervix position: mid Consistency: soft Contraction intensity: Strong/Firm Fetus (Single) Amniotic Membrane Status: SROM Amniotic Membrane Fluid Description: Clear Heart Rate Baseline: 120 Monitor Accelerations: Present Monitor Decelerations: None 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
[2023-11-21 20:05] LABS: Basophils Absolute Auto 0.04 K/uL (0.00-0.30); Basophils Percent Auto 0.6 % (0.0-3.0); Eosinophils Absolute Auto 0.07 K/uL (0.00-0.50); Eosinophils Percent Auto 1.1 % (0.0-7.0); Hematocrit 35.8 % (33.0-51.0); Hemoglobin* 11.5 gm/dL (12.0-16.0); Immature Granulocytes Abs Auto 0.01 K/uL (0.00-0.30); Immature Granulocytes Pct Auto 0.2 %; Lymphocytes Absolute Auto 1.37 K/uL (0.90-2.90); Lymphocytes Percent Auto 21.1 % (20-44); Mean Corpuscular HGB Conc 32 gm/dL (32-36); Mean Corpuscular Hemoglobin 30 pg (26-34); Mean Corpuscular Volume 94 fL (80-100); Monocytes Percent Auto 7.7 % (0.0-11.0); Neutrophils Percent Auto 69.3 % (42.0-72.0); Platelet Count* 261 K/uL (140-440); RDW Coefficient of Variation % 12.3 % (11.5-15.5); Red Blood Count 3.83 m/uL (4.00-5.20); White Blood Count* 6.49 K/uL (4.50-11.00)
[2023-11-21] MEDS: fentaNYL 100 MCG/2 ML inj 30 MCG INTRATHECA (20:09)
[2023-11-21 20:15] LABS: Slide Review Reflex No
--- NOTE | 2023-11-21 20:16 | PM.ANBPRC ---
[facility] [place] (Updated 11/21/23 @ 19:50 by Nelly Mccord MD) Acute maxillary sinusitis ?J01.00 - Acute maxillary sinusitis, unspecified (ICD-10) Sinusitis ?J32.9 - Chronic sinusitis, unspecified (ICD-10) Postcoital bleeding ?N93.0 - Postcoital and contact bleeding (ICD-10) Abnormal uterine bleeding (AUB) ?N93.9 - Abnormal uterine and vaginal bleeding, unspecified (ICD-10) ?Z34.90 - Encounter for supervision of normal , unspecified, unspecified trimester (ICD-10) Gestational hypertension ?O13.9 - Gestational [-induced] hypertension without significant proteinuria, unspecified trimester (ICD-10) Depression (05/25/13) ?F32.A - Depression, unspecified (ICD-10) Anxiety disorder (05/25/13) ?F41.9 - Anxiety disorder, unspecified (ICD-10) Surgical History History of D&C (02/18/21) ?Z98.890 - Other specified postprocedural states (ICD-10) Family History Paternal Grandfather Stroke Maternal Grandmother Diabetes Father Migraine headache Social History Narrative: Does not drink alcohol Does not use illicit drugs Non-smoker Lives in [place] with . Works at [employer]. Smoking Status: Never smoker Little interest or pleasure in doing things: not at all Feeling down, depressed, or hopeless: not at all Meds Home Medications and Allergies Home Medications Medication Instructions Recorded Confirmed Type docosahexaenoic acid 200 mg 200 mg PO DAILY 04/13/23 11/18/23 History capsule ( DHA) omega 3-amr-wcb-fish oil 100 1 cap PO DAILY 04/13/23 11/18/23 History mg-160 mg-1,000 mg capsule (Fish Oil) aspirin 81 mg tablet,delayed 81 mg PO QDAY 08/29/23 11/18/23 History release (Adult Aspirin Regimen) Allergies Allergy/AdvReac Type Severity Reaction Status Date / Time No Known Allergies Allergy Verified 11/18/23 08:34 Results Labs Labs: Laboratory Results - last 24 hr 11/21/23 10:17 WBC 6.49 RBC 3.83 L Hgb 11.5 L Hct 35.8 MCV 94 MCH 30 MCHC 32 RDW Coeff of Clari 12.3 Plt Count 261 Neut % (Auto) 69.3 Lymph % (Auto) 21.1 [place] % (Auto) 7.7 Eos % (Auto) 1.1 Baso % (Auto) 0.6 Neut # (Auto) 4.50 Lymph # (Auto) 1.37 [place] # (Auto) 0.50 Eos # (Auto) 0.07 Baso # (Auto) 0.04 Abs Immat Gran (auto) 0.01 Imm/Tot Granulo (auto) 0.2 Vital Signs Vital Signs: Last Vital Signs Pulse 78 11/21/23 20:14 BP 121/72 11/21/23 20:14 Pulse Ox 100 11/21/23 20:11 Weight: 84.187 kg Height: 170.18 cm Anesthesia Procedures Intrathecal Patient Location: OB Start Time: 19:55 Stop Time: 20:25 Start Date: 11/21/23 Stop Date: 11/21/23 Reason for Block: procedure for pain Patient Position: sitting Performed By: Maciej Kinsey Preanesthetic Checklist: risks and benefits discussed, monitors and equipment checked, pre-op evaluation, timeout performed and anesthesia consent Prep: chlorhexidine gluconate Monitoring: blood pressure monitoring, continuous pulse oximetry and heart rate Vertebral Space: lumbar (1-5) Needle Type: Pencan Injection Technique: single-shot (0.6 ml 0.75% marcaine) Needle gauge: 25 Needle Length (cm): 10 cm Events: cerebrospinal fluid
[2023-11-21] MEDS: OXYTOCIN 30 unit/500 ML in NS 30 UNIT/500 ML BAG 300 UNIT IVPB (20:50)
[2023-11-21] MEDS: LIDOCAINE 1 % PF 30 ML INJECTION (20:56)
--- NOTE | 2023-11-21 21:49 | W.PM.OBVAGDE ---
OB Procedure Vag Delivery Mother Details Mother Details: The patient is a 38 year-old, 3, Para 1011, admitted on 11/21/23 at 39.3 weeks gestation in active labor. Questionable SROM at 5:45 pm, not confirmed on admission. : 3 Para: 1 Weeks Gestation: 39.3 Admission Date: 11/21/23 Additional Details Amniotic Membrane Status: SROM Amniotic Membrane Rupture Date: 11/21/23 Amniotic Membrane Rupture Time: 20:25 Amniotic Membrane Fluid Description: Clear Analgesia/Anesthesia Type: Intrathecal Waterbirth: No Pitcoin: No Intrapartal Events: Precipitous Labor <3 Hrs Labor Onset: 19:15 Complete: 20:40 Pushin:47 Heart: heart tones during second stage were 120s baseline with good variability and accelerations. Delivery Details Delivery Date: 11/21/23 Delivery Time: 20:48 Route of delivery: Infant Gender: Female Viability: Alive; Heart Rate Present Position at Delivery: OA Delivery Details: Delivered over 2nd degree midline perineal laceration via spontaneous vaginal delivery. was placed on maternal abdomen.? Cord was clamped and cut after a 30-60 second delay. Nose and mouth were bulb suctioned.? weight pending. Additional Details Shoulder Dystocia: No Placenta Delivery Time: 21:52 Placental Delivery Description: Spontaneous Delivery repair: Vicryl (3-0 for the right periurethral laceration) and Chromic (3-0 for the perineal laceration) Blood Loss: 75 Laceration: Perineal - 2nd Degree (and right 1st degree periurethral laceration extending to clitoral garcia) Episiotomy Description: None Blood Loss Measurement Type: QBL Bakri Used: No Sponge/Need Count Correct: Yes Cord Vessel Description: 3 Vessels Event Summary Status: Mother and were stable after delivery. Disposition: floor
[2023-11-21 23:36] LABS: Alanine Aminotransferase* 10 U/L (4-35); Aspartate Amino Transferase* 26 U/L (12-35); Blood Urea Nitrogen* 8 mg/dL (5-24); Creatinine* 0.6 mg/dL (0.5-1.5); Est. Creatinine Clearance* 124.84; Estimated Glomerular Filt Rate 118 ml/min
[2023-11-21 23:38] LABS: Hematocrit 33.8 % (33.0-51.0); Hemoglobin* 11.4 gm/dL (12.0-16.0); Mean Corpuscular HGB Conc 34 gm/dL (32-36); Mean Corpuscular Hemoglobin 31 pg (26-34); Mean Corpuscular Volume 91 fL (80-100); Platelet Count* 259 K/uL (140-440); Red Blood Count 3.71 m/uL (4.00-5.20); White Blood Count* 13.74 K/uL (4.50-11.00)
[2023-11-21 23:40] LABS: Slide Review Reflex No
[2023-11-22] MEDS: IBUPROFEN 600 MG TABLET PO ×4 (00:03→19:18)
[2023-11-22 04:36] VITALS: BP 107/64; PULSE 62; RESP 16; TEMP 36.4; O2SAT 97
[2023-11-22] MEDS: LANOLIN CREAM 1 APPLIC TOPICAL (04:41)
[2023-11-22] MEDS: ACETAMINOPHEN 500 MG TABLET 1000 MG PO ×3 (05:20→18:20)
[2023-11-22] MEDS: OXYCODONE 5 MG TABLET PO ×5 (05:31→22:39)
[2023-11-22 06:26] LABS: Hemoglobin* 10.6 gm/dL (12.0-16.0)
--- NOTE | 2023-11-22 09:17 | PM.OBPNVD1 ---
OB - PN:Subj Subjective Date Seen: 11/22/23 Patient comments OB post-: no complaints and pain well controlled [place] infant status: and doing well [place] feeding status: exclusively Narrative: Bren is a 38 y.o. who was admitted to L & D for labor.? She had an uncomplicated NVD.? ?? The patient feels well.? The pain is well controlled with current medications.? She has no new complaints.? She is breast feeding and reports things are going well, she would like some help today with as she primarily pumped with her last child.? the patient has done well.? Vitals have been stable.? She has remained afebrile.? Has a good appetite, is tolerating a general diet.? She is voiding without difficulty.? She is passing gas and has not had a bowel movement.? She is ambulating and denies any dizziness.? Has Small amount of rubra lochia.? OB - PN: Obj Exam Physical Exam: Vital signs: Temp Pulse Resp BP Pulse Ox O2 Del Method 97.6 F 62 16 107/64 97 Room Air 11/22/23 04:36 11/22/23 04:36 11/22/23 04:36 11/22/23 04:36 11/22/23 04:36 11/22/23 04:36 Narrative: GENERAL APPEARANCE:? normal affect, alert, no distress? MOOD:? appropriate? HEENT: normocephalic, neck supple, full ROM? CHEST:? Symmetrical chest wall movement.? Normal respiratory effort.? Clear to auscultation ? HEART:? regular rate and rhythm? ABDOMEN:? soft, non-tender. Uterine fundus is firm, 1 above Umbilicus, Midline and is appropriate for the stage of recovery.? Bowel sounds present.? PERINEUM:? mild edema of the perineum, there is a 2nd degree laceration that is healing well.? EXTREMITIES:? normal and no edema? OB - PN: Obj Data Labs Labs: Laboratory Results - last 24 hr 11/21/23 11/21/23 11/22/23 10:17 23:05 06:06 WBC 6.49 13.74 H RBC 3.83 L 3.71 L Hgb 11.5 L 11.4 L 10.6 L Hct 35.8 33.8 MCV 94 91 MCH 30 31 MCHC 32 34 RDW Coeff of Clari 12.3 Plt Count 261 259 Neut % (Auto) 69.3 Lymph % (Auto) 21.1 [place] % (Auto) 7.7 Eos % (Auto) 1.1 Baso % (Auto) 0.6 Neut # (Auto) 4.50 Lymph # (Auto) 1.37 [place] # (Auto) 0.50 Eos # (Auto) 0.07 Baso # (Auto) 0.04 Abs Immat Gran (auto) 0.01 Imm/Tot Granulo (auto) 0.2 BUN 8 Creatinine 0.6 Estimated Creat Clear 124.84 Estimated GFR 118 AST 26 ALT 10 Blood Type A Positive Antibody Screen NEGATIVE OB - PN: A/P Delivery Assessment and Plan (1) SROM (spontaneous rupture of membranes): Status: Deleted (2) care and examination immediately after delivery: Status: Acute (3) Lactating mother: Status: Acute Plan day: 1 Plan: routine care Comments: G 3 P 2 status post uncomplicated NVD??? 1.? Continue route PP cares? 2.? .? May see if desired? 3.? Anticipate discharge home tomorrow? 4. Elevated BP recorded >140/90, not 4 hours apart, no dx of HTN at this time if additional elevated BP obtained consider PreE labs
[2023-11-22] MEDS: DOCUSATE SODIUM 100 MG CAPSULE PO (09:46)
[2023-11-22 09:48] VITALS: BP 112/71; PULSE 78; RESP 16; TEMP 36.4; O2SAT 95
[2023-11-22 11:48] VITALS: BP 130/78; PULSE 72; RESP 16; TEMP 36.6; O2SAT 95
--- NOTE | 2023-11-22 13:04 | PM.ANPOST ---
Post Anesthesia Note Post Anesthesia Note Patient seen: Inpatient Respiratory Status: adequate Cardiovascular Status: adequate Mental Status: baseline Pain: adequate Temp: baseline Anesthetic awareness: N/A Complications: none Follow care: none
[2023-11-22 16:00] VITALS: BP 118/78; PULSE 72; RESP 18; TEMP 36.7; O2SAT 98
[2023-11-22 21:15] VITALS: BP 113/69; PULSE 85; RESP 18; TEMP 36.6; O2SAT 96
[2023-11-23] MEDS: ACETAMINOPHEN 500 MG TABLET 1000 MG PO ×2 (00:25→06:33)
[2023-11-23 00:43] VITALS: BP 121/79
[2023-11-23] MEDS: OXYCODONE 5 MG TABLET PO ×3 (03:24→11:34)
[2023-11-23] MEDS: IBUPROFEN 600 MG TABLET PO ×2 (03:25→09:46)
[2023-11-23 05:29] VITALS: BP 112/71; PULSE 77; RESP 18; TEMP 36.5; O2SAT 96
[2023-11-23 07:39] VITALS: BP 113/74; PULSE 66; RESP 16; TEMP 36.6; O2SAT 97
[2023-11-23] MEDS: DOCUSATE SODIUM 100 MG CAPSULE PO (09:46)
--- NOTE | 2023-11-23 09:56 | PM.OBDSVD1 ---
DS: Providers Provider Date Seen: 11/23/23 Date of admission: 11/21/23 19:10 Primary care physician: Peggy Freeman MD Admitting Clinician: Nelly Mccord MD Attending Physician on discharge: Nikole Matthews APRN, CNM DS: Diagnosis Discharge Diagnosis (1) care and examination immediately after delivery: Status: Acute (2) Elevated blood-pressure reading without diagnosis of hypertension: Status: Acute Problem details: Multiple elevated BP, no diagnosis of GHTN as it has not been 4 hours apart (3) Lactating mother: Status: Acute Exam Narrative: Exam Narrative: GENERAL APPEARANCE:? normal affect, alert, no distress MOOD:? appropriate CHEST:? clear to auscultation HEART:? regular rate and rhythm ABDOMEN:? soft, non-tender the uterine fundus is 1 below Umbilicus, Midline and is appropriate for the stage of recovery. PERINEUM:? mild edema of the perineum, there is a Perineal Laceration,?2nd degree, that is healing well. EXTREMITIES:? normal and no edema Const: Vital Signs, click to edit/add: Vital Signs - 24 hr 11/22/23 11:48 11/22/23 16:00 11/22/23 21:15 Temperature 97.8 F 98.0 F 97.8 F Pulse Rate [Pulse Oximeter] 72 72 85 Respiratory Rate 16 18 18 Blood Pressure [Ri ght Arm] 130/78 118/78 113/69 Pulse Oximetry 95 98 96 Oxygen Delivery Me thod Room Air Room Air Room Air 11/23/23 00:43 11/23/23 05:29 11/23/23 07:39 Temperature 97.7 F 97.8 F Pulse Rate [Pulse Oximeter] 77 66 Respiratory Rate 18 16 Blood Pressure [Ri ght Arm] 121/79 112/71 113/74 Pulse Oximetry 96 97 Oxygen Delivery Me thod Room Air Room Air Documenting provider has reviewed patient's vital signs: yes OB - DS: Summary Hospital Course Hospital Course: Bren is a 38 y.o. G 3 P 2 who was admitted to L & D for spontaneous onset of labor. ?She had a NVD that was uncomplicated. She did have a few elevated blood pressures at time of delivery but has been normotensive since. The patient feels well. ?The pain is well controlled with current medications. ?She has no new complaints. ?She is breast feeding and reports things are going ok. She has not breastfed since yesterday afternoon due to difficulty latching. She desires some assistance today, RN team notified. the patient has done well.? Vitals have been stable.? She has remained afebrile.? Has a good appetite, is tolerating a general diet. ?She is voiding without difficulty.? She is passing gas and has not had a bowel movement.? She is ambulating and denies any dizziness.? Has small amount of rubra lochia. She is planning condoms for prevention. Problems: none plan: Discharge home with baby. Follow up in 2 weeks and 6 weeks. , may see if needed. Encouraged to return for additional support if she desires to continue Hgb 10.6. Elevated BP without diagnosis of HTN. Hx of GHTN. Reviewed warning s/sx of when to return. Peripartum Data delivery method: Vaginal Laceration description: Perineal - 2nd Degree complications: none Gender: Female Infant Discharge Plan: Home Status at Discharge Functional status at discharge: independent ambulation Overall status at discharge: patient is progressing back to baseline Time Spent with Patient Time attestation: Total time spent providing and/or coordinating discharge services: Time spent: Less than 30 minutes Discharge Plan Discharge Disposition: Home, Self-Care Date of Admission: 11/21/23 19:10 Attending Provider on Discharge: Nikole Matthews Primary Care Provider: Peggy Freeman Condition: Stable Anticipated Discharge Date/Time: 11/23/23 12:00 Discharge Medications: New acetaminophen 500 mg Tablet 1,000 mg PO Q6H PRNQty: 0 0RF docusate sodium 100 mg Capsule 100 mg PO DAILY Qty: 90 0RF ibuprofen 600 mg Tablet 600 mg PO Q6H PRNQty: 60 0RF Continued DHA 200 mg capsule 200 mg PO DAILY Fish Oil 100-160-1,000 mg capsule 1 cap PO DAILY omeprazole 40 mg capsule,delayed release(DR/EC) 40 mg PO QDAY Qty: 90 0RF Hold Instructions: patient states no longer needed wmdmmjgkka-uuuvymzdzgdre-avni 50-325-40 mg capsule 1 cap PO Q4-6H MDD 8 caps in 24 hours Qty: 20 0RF sumatriptan succinate 25 mg tablet 25 mg PO .COMPLEX PRN (Reason: migraine headache) Qty: 10 4RF Rx Instructions: 25 mg orally PRN; may repeat dose x1 after 2 hours. Maximum 200 mg in 24 hours Discontinued aspirin [Adult Aspirin Regimen] 81 mg tablet,delayed release (DR/EC) 81 mg PO QDAY Discharge Orders: Discharge Order (Routine); Ordered 11/23/23 Ordered By: Nikole Matthews Patient Education: OB Over the Counter Medication Information, OB Vaginal/Breast Feeding Additional Instructions: Discharge instructions were reviewed with the patient including signs and symptoms of infection and home going medications Nothing vaginally for 6 weeks: no tampons or intercourse Off Work or School for 6 weeks 2-week visit: discuss feeding concerns, review control options and screen for anxiety/depression. 6-week visit for an annual exam. consultation services are available to all mothers and babies for the first year after delivery.? To make an appointment, please call [phone]. Activity Level: Activity as Tolerated Discharge Diet: Regular Follow Up Appointments: [facility] [Provider Group] Forms: MyHealth Info Instructions
[2023-11-23 11:24] VITALS: BP 128/79
[2023-11-24 01:28] LABS: Rapid Plasma Reagin (RPR) Non Reactive (Non Reactive)
== END 2023-11-23 13:30 | disposition home or self-care (01) | DRG 560 ==
LOC: OB OUT 19:32 → OB 19:32
PROVIDERS: Admitting Provider Obstetrics & Gynecology; PCP Family Medicine; Visit Provider Obstetrics & Gynecology
DX: O70.1 Second degree perineal laceration during delivery (principal); Z3A.39 39 weeks gestation of pregnancy; Z37.0 Single live birth; G43.909 Migraine, unspecified, not intractable, without status migrainosus; R03.0 Elevated blood-pressure reading, without diagnosis of hypertension
CPT/HCPCS: 01967; 36415; 59025; 82565; 82570; 84112; 84156; 84450; 84460; 84520; 84550; 85018; 85025; 85027; 86592; 86850; 86900; 86901; G0463; A9270; J2001; J2405; J2765; J3010; J7120

== ENCOUNTER 2023-11-28 08:47 | Outpatient (CLI) | payer BC, SELFPAY ==
--- NOTE | 2023-11-28 17:00 | P.LACCB_ITS ---
Consult Note - Mom Date of Visit Date of visit: 11/28/23 wardrobe image consultant: Peggy Caldreon Visit Code: Visit Patient's Information Phone number: [phone] : 3 Para: 2 Allergies No Known Allergies Allergy (Verified 12/02/23 15:17) Mother's Medical History: Medical History (Updated 12/02/23 @ 15:53 by Elsa Carrillo CNP) IUFD at 18 weeks Gestational hypertension ?O13.9 - Gestational [-induced] hypertension without significant proteinuria, unspecified trimester (ICD-10) Depression (05/25/13) ?F32.A - Depression, unspecified (ICD-10) Anxiety disorder (05/25/13) ?F41.9 - Anxiety disorder, unspecified (ICD-10) Delivery Information Delivery type: Vaginal Weeks Gestation: 39.3 Gestational Age: AGA Weight: 3.68 kg Discharge Weight: 3.538 kg Baby's Information Baby's Age at Visit: 7 days Baby's Provider or Clinic: Dr. Eubanks Jaundice: No Reason for Consult Reason for Consult: sleepy at breast, recent trouble latching on the right side Past Experience Past Experience: No (pumped and bottle fed first) Current Frequency of Day Feedings: every 2 - 3 hours around the clock, some cluster feeding Both Breasts: Yes Suck: fairly strong Latch: somewhat shallow Length of Time: about 10 minutes/side Pumping Pumping: Yes (1 - 2 times/day) Quantity Pumped: 2 - 4 oz total each time Supplementing EMB Supplement: Yes (offers 10 - 30 ml by syringe about once/day) Baby Elimination Number of Wet Diapers a Day: for at least half her feedings Number of BM a Day: more than half her feedings, yellow and seedy Breast/Nipple Condition Breast Information: WNL Maternal Nipple Condition - Left: Common Nipple and Short Maternal Nipple Condition - Right: Common Nipple and Short Sore Nipples: No Onsite Pre-Feed weight: 3.614 kg Post-Feed weight: 3.676 kg Milk Transferred (mL): 62 Assessments/Interventions Assessments/Interventions: Met with mom and this now 7 day old ex- term AGA baby for consult. Mom was not successful in nursing her older child and really wants this experience to go well. She states baby is nursing every 2 - 3 hours for about 10 minutes/side. Mom is worried this isn't long enough and states baby is sleepy at breast as well as not nursing for very long. D/T mom's concern baby isn't taking enough at breast, she will occasionally offer 10 - 30 ml EBM by syringe, but this is usually no more than once/day. She's pumping 1 - 2 times/day and gets 2 - 4 oz total each time. Breasts WNL- symmetrical with rounded lower quadrants, intramammary distance is < 1.5 inches. Nipples are short but everted and don't flatten or retract on compression. The left has a 2 - 3 mm fissure across the center that looks to be 1 - 2 mm deep. Mom has been applying homemade APNO to that nipple and states it's healing but glass cut off tender when baby nurses. Baby has gained 60 grams/day since her NB visit on 11/24 and is 2% below BW at 7 DOL. Mom denies any caput/cephalohematoma at delivery and states baby has equal ROM when turning her head and moving her extremities. Baby's palate is WNL. Upper and lower frenulum also appear to be WNL. She has a strong suck on a finger and easily extends her tongue over the gumline. The tongue also has good lateral ROM. Mom latched baby to the right side in the cross cradle hold. The latch looked wide and mom was comfortable. Baby nursed about 5 minutes before coming off and mom was encouraged to burp her and offer that same side again. When she came off a second time, mom roused her and offered the right side. The latch looked wide but mom was more uncomfortable. With small adjustments to turn baby more tummy to tummy, move her pointer finger away from the areola, and exaggerate nipple to nose mom was able to get a deeper latch and was more comfortable. Baby nursed 5 - 7 minutes and when weighed had transferred 62 ml. Plan: 1. Continue to nurse baby ALD or at least every three hours until her 2 week WCC. Offer both sides and try the positioning adjustments to make it more comfortable. Reviewed that a 10 minute feeding/side is WNL and baby is gaining weight very appropriately and transferred an appropriate amount. 2. No medical need to continue supplementing. 3. Suggested mom hand express/Haakaa/pump to comfort if needed after a nursing session. No need to pump to empty. 4. Gave instructions and bottle for a nipple rinse and suggested she do this after every feeding until her nipple scabs. Pat dry, and can apply her milk and or the APNO cream. Let air dry. 5. Will f/u in on 12/15 for a one month pre and post feeding weight. Meds Home Medications and Allergies Home Medications Medication Instructions Recorded Confirmed Type docosahexaenoic acid 200 mg 200 mg PO DAILY 04/13/23 12/02/23 History capsule ( DHA) omega 1-clm-axd-fish oil 100 1 cap PO DAILY 04/13/23 12/02/23 History mg-160 mg-1,000 mg capsule (Fish Oil) Allergies Allergy/AdvReac Type Severity Reaction Status Date / Time No Known Allergies Allergy Verified 12/02/23 15:17
== END 2023-11-28 08:48 | disposition home or self-care (01) ==
LOC: OB LAC 08:48
PROVIDERS: PCP Family Medicine; Visit Provider Advanced Practice Midwife
DX: Z39.1 Encounter for care and examination of lactating mother (principal)
CPT/HCPCS: G0463

== ENCOUNTER 2023-11-30 14:58 | Outpatient (CLI) | payer BC, SELFPAY ==
--- NOTE | 2023-11-30 15:00 | US_ITS ---
Patient: TRENTON MARMOLEJO Facility:?[facility] Patient ID:?[id number] Site Patient ID:?[id number] Site :?[id number] Study:?US-Pelvis PELVIS TA-11/30/2023 9:03:56 AM Ordering Physician:GM QUAN M.D. Final Report: INDICATION: bleeding COMPARISON: 02/17/2023 TECHNIQUE: 2D blackwood scale and color Doppler images were acquired of the pelvis using a transabdominal approach. FINDINGS: Sonographic images demonstrate a normal size and smooth outer contour of the uterus. Uterus measures 14.2 cm in length by 7.4 cm in AP diameter by 10.7 cm in transverse dimension. A focal area of decreased echotexture within the uterine fundus measuring 14 x 26 x 28 millimeters. This is intramural. The endometrial lining appears normal and measures 3 mm in thickness. The right ovary measures 3.0 x 2.2 x 2.5 cm in size and the left ovary is not visualized. The right ovary demonstrate normal arterial and venous blood flow on color Doppler analysis. There are no suspicious fluid collections within the cul-de-sac. IMPRESSION: Endometrial thickness 3 millimeters. No endometrial fluid. No evidence of retained products of conception. Incidental intramural fibroid measuring 2.8 cm Dictated by Willie Aparicio MD @ 12/02/2023 9:07:23 AM Signed by:?Willie Aparicio MD @12/02/2023 9:07:23 AM (Electronic Signature)
== END 2023-11-30 14:59 | disposition home or self-care (01) ==
LOC: US 14:59
PROVIDERS: PCP Family Medicine; Visit Provider Obstetrics & Gynecology
DX: O72.1 Other immediate postpartum hemorrhage (principal); D25.1 Intramural leiomyoma of uterus
CPT/HCPCS: 76856

== ENCOUNTER 2023-12-30 16:05 | Outpatient (CLI) | payer BC, SELFPAY | END 2023-12-30 16:06 | disposition home or self-care (01) | LOC: NFLDREF 16:06 | PROVIDERS: PCP Family Medicine; Visit Provider Registered Nurse | DX: R53.83 Other fatigue (principal); R23.2 Flushing | CPT/HCPCS: 84443 ==

== ENCOUNTER 2024-08-28 11:32 | Outpatient (CLI) | payer BC, SELFPAY ==
--- NOTE | 2024-08-28 11:45 | CRLHL7_ITS ---
For Patients: As a result of the Cures Act, medical imaging exams and procedure reports are released immediately into your electronic medical record. You may view this report before your referring provider. If you have questions, please contact your health care provider. DIGITAL DIAGNOSTIC BILATERAL MAMMOGRAM USING TOMOSYNTHESIS AND COMPUTER-AIDED DETECTION RIGHT BREAST ULTRASOUND CLINICAL HISTORY: RIGHT breast mastitis. COMPARISON: None. TECHNIQUE: Digital BILATERAL mammogram in four projections with computer-aided detection. Tomosynthesis was used in this interpretation. Real-time ultrasound imaging of RIGHT breast with imaging documentation. BREAST COMPOSITION: The breasts are extremely dense, which lowers the sensitivity of mammography. FINDINGS: 3D CC/MLO BILATERAL mammogram images submitted. No suspicious mass or architectural distortion. No suspicious calcifications or adenopathy. Targeted RIGHT breast ultrasound performed at 5 o`clock 5 cm from the nipple. Dense heterogeneous hypervascular tissue is present with associated edema. No drainable abscess. IMPRESSION: Mastitis RIGHT breast 5 o`clock 5 cm from the nipple. No drainable abscess. RECOMMENDATIONS: Clinical follow-up. BI-RADS Category 2: Benign A lay language report of this examination will be provided to the patient. Dictated by Willie Aparicio MD @ 08/28/2024 12:28:00 PM tabbyj/Dictated by: Willie Aparicio MD @ 08/28/2024 12:27:00 PM (Electronically Signed)
--- NOTE | 2024-08-28 12:00 | CRLHL7_ITS ---
For Patients: As a result of the Cures Act, medical imaging exams and procedure reports are released immediately into your electronic medical record. You may view this report before your referring provider. If you have questions, please contact your health care provider. SEE DIGITAL DIAGNOSTIC BILATERAL MAMMOGRAM PERFORMED SAME DAY CRL:jagruti chand/Dictated by: Willie Aparicio MD @ 08/28/2024 12:32:00 PM (Electronically Signed)
== END 2024-08-28 11:33 | disposition home or self-care (01) ==
LOC: MAMMO 11:33
PROVIDERS: PCP Family Medicine; Visit Provider Obstetrics & Gynecology
DX: N61.0 Mastitis without abscess (principal)
CPT/HCPCS: 76642; 77066; G0279

== ENCOUNTER 2024-12-19 10:27 | Outpatient (CLI) | payer BC, SELFPAY ==
[2024-12-22 04:50] LABS: HPV Source Cervical/Vag; HPV, High Risk by TMA Not Detected
== END 2024-12-19 10:28 | disposition home or self-care (01) ==
PROVIDERS: PCP Family Medicine; Visit Provider Physician Assistant Medical
DX: Z00.00 Encounter for general adult medical examination without abnormal findings (principal); Z11.51 Encounter for screening for human papillomavirus (HPV); Z12.4 Encounter for screening for malignant neoplasm of cervix; Z13.228 Encounter for screening for other metabolic disorders; Z13.6 Encounter for screening for cardiovascular disorders; Z13.29 Encounter for screening for other suspected endocrine disorder
CPT/HCPCS: 80053; 80061; 84443; 87624; 87625; 88141; 88142

== ENCOUNTER 2024-12-26 10:53 | Outpatient (CLI) | payer BC, SELFPAY | END 2024-12-26 10:54 | disposition home or self-care (01) | PROVIDERS: PCP Family Medicine; Visit Provider Obstetrics & Gynecology | DX: N92.6 Irregular menstruation, unspecified (principal) | CPT/HCPCS: 82627; 82670; 83001; 83002; 83520; 84146; 84270; 84402; 84403 ==